=== PATIENT | female | born 1950 | race Caucasian/White ===

== ENCOUNTER 2016-12-27 10:23 | Outpatient (CLI) | payer MEDICARE, MEDICAID ==
--- NOTE | 2016-12-27 11:42 | PRG ---
DATE OF SERVICE: 12/27/2016 HISTORY: Ms. Selina Church is a very pleasant 66-year-old who presents to the [facility] for evaluation of a wound of the anterior abdominal wall subsequent to incision and drainage and debrid ement of an anterior abdominal wall abscess at bedside by Dr. Abimael Mejias. Upon discharge from [facility], the patient was referred to the Wound Center for further evaluatio n and treatment. Upon discharge, the patient was placed on Levaquin. The patient previously stated that she had completed the course of Levaquin as prescribed. After being seen in the Wound Center, the patient was placed on dressing changes of Aquacel AG and bordered gauze on a daily basis after cleansing and irrigation. PHYSICAL EXAMINATION: VITAL SIGNS: Temperature 98.2, pulse 99, respirations 18, blood pressure 167/91. ABDOMEN: Soft. EXTREMITIES: An ulceration of the anterior abdominal wall is present which measures approximately 1 .1 x 0.4 cm. The dimensions of the wound at the time of the patient's last visit were approximately 2.8 x 1.3 cm. Granulation tissue is present within the wound margins. Nonviable tissue present wi thin the wound margins was debrided with an excisional full-thickness debridement. No purulent drai nage is associated with the wound. No erythema of the skin surrounding the wound is present. No ma ceration of the skin of the periwound is noted. ASSESSMENT AND PLAN: 1. Wound of the anterior abdominal wall subsequent to incision and drainage and debridement of an a nterior abdominal wall abscess. The patient underwent the preceding procedure at bedside by Dr. Ansley Mejias during her hospital stay from 11/23/2016-11/27/2016. Dressing changes of Aquacel AG and bordered gauze will be continued on a daily basis after cleansing and irrigation. Arrangements wer e previously made for the home delivery of dressing supplies. I will see Ms. Church again in two we eks if her wound is still present at this time. 2. Atrial fibrillation. 3. Hypertension. 4. Osteoarthritis. 5. Anemia. 6. Osteopenia. 7. History of tension headaches. 8. History of sick sinus syndrome.
[2016-12-27] MEDS ORDERED: Sodium Chloride 0.9% 15 ML NEB ONE ×2 (20:00→21:00)
== END 2016-12-27 10:24 | disposition home or self-care (01) ==
LOC: WCC 10:23
PROVIDERS: ATTEND Family Medicine
DX: S31.109D Unspecified open wound of abdominal wall, unspecified quadrant without penetration into peritoneal cavity, subsequent encounter (principal); I48.91 Unspecified atrial fibrillation; I10 Essential (primary) hypertension; M19.90 Unspecified osteoarthritis, unspecified site; D64.9 Anemia, unspecified; M85.9 Disorder of bone density and structure, unspecified
CPT/HCPCS: 11042; A4218

== ENCOUNTER 2017-04-20 09:56 | Outpatient (CLI) | payer MEDICARE, MEDICAID ==
[2017-04-20 11:26] LABS: #Eosinphils 0.4 thou/uL (0.0-0.7); #Lymphocytes 1.7 thou/uL (1.20-3.40); #Monocytes 0.4 thou/uL (0.11-0.59); #Neutrophils 2.5 thou/uL (1.40-6.50); %Basophils 0.7 % (0.0-1.0); %Eosinophils 7.4 % (0.0-10.0); %Monocytes 7.8 % (0.0-10.0); %Neutrophils 50.1 % (42.0-75.0); Mean Corpuscular HGB CONC 31.7 g/dL (32.0-36.0); Mean Corpuscular Hemoglobin 27.9 pg (27.0-31.0); Mean Platelet Volume 7.5 fL (7.4-10.4); Platelet Count 205 thou/uL (130-400); RBC Distribution Width 12.4 % (11.5-14.5)
[2017-04-20 11:46] LABS: Anion Gap 14 mmol/L (10-20); BUN (Urea Nitrogen) 13 mg/dL (9.8-20.1); Calc. Creatinine Clearance 0 mL/min (70-130); Calcium 9.5 mg/dL (7.8-10.44); Carbon Dioxide 28 mmol/L (23-31); Chloride 102 mmol/L (98-107); Estimated GFR-MDRD 72; Glucose 86 mg/dL (80-115); Potassium 4.2 mmol/L (3.5-5.1); Sodium 140 mmol/L (136-145)
--- NOTE | 2017-04-21 07:17 | EKG ---
Test Reason : Blood Pressure : / mmHG Vent. Rate : 076 BPM Atrial Rate : 076 BPM P-R Int : 142 ms QRS Dur : 064 ms QT Int : 376 ms P-R-T Axes : 000 063 010 degrees QTc Int : 423 ms Electronic atrial pacemaker Low voltage QRS Cannot rule out Anterior infarct , age undetermined Abnormal ECG When compared with ECG of 06-OCT-2016 07:38, No significant change was found Confirmed by THAI BERRIOS, . SGregory ([id number]) on 04/21/2017 7:17:15 AM Referred By: VIKAS Confirmed By:DR. Chris ANDRE MD
== END 2017-04-20 09:57 | disposition home or self-care (01) ==
LOC: LABBT 09:56
PROVIDERS: ATTEND Surgery
DX: Z01.812 Encounter for preprocedural laboratory examination (principal); K44.9 Diaphragmatic hernia without obstruction or gangrene
CPT/HCPCS: 80048; 85025; 93005; 93010

== ENCOUNTER 2017-04-24 05:38 | Inpatient (IN) | payer MEDICARE, MEDICAID ==
[2017-04-20 10:30] VITALS: BMI 44.2
[2017-04-24] MEDS ORDERED: Bupivacaine 0.25% HCL 30 ML VIAL ONE (06:45)
[2017-04-24] MEDS ORDERED: Lidocaine 2% w/Epinephrine 1:200K 20 ML VIAL ONE (06:45)
[2017-04-24] MEDS ORDERED: Fentanyl 100 MCG/2 ML VIAL ONE ×2 (06:57→09:35)
[2017-04-24] MEDS ORDERED: HYDROmorphone 0.5 MG/0.5 ML SYRINGE ONE (06:57)
[2017-04-24] MEDS ORDERED: CEFAZOLIN/Water 2 GM/20 ML SYRINGE ONE (07:25)
[2017-04-24] MEDS ORDERED: Ondansetron HCl/PF 4 MG/2 ML Vial IVP PRN ×2 (09:29→11:30)
[2017-04-24] MEDS ORDERED: Promethazine HCl 25 MG/ML VIAL SLOW IVP PRN (09:29)
[2017-04-24] MEDS ORDERED: HYDROmorphone 2 MG/ML VIAL SLOW IVP PRN (09:29)
[2017-04-24] MEDS ORDERED: Promethazine HCl 25 MG/ML VIAL IM PRN ×2 (09:29→11:30)
[2017-04-24] MEDS ORDERED: Promethazine HCl 25 MG/ML VIAL ONE (09:35)
[2017-04-24] MEDS ORDERED: Mag-Al 1200 mg/1200 mg/30 ML UDCUP PO PRN (11:30)
[2017-04-24] MEDS ORDERED: hydrALAZINE 20 MG/ML VIAL SLOW IVP PRN (11:30)
[2017-04-24] MEDS ORDERED: Dextrose 5% in Water 1,000 ML IV PRN (11:30)
[2017-04-24] MEDS ORDERED: Acetaminophen 325 MG TAB PO PRN (11:30)
[2017-04-24] MEDS ORDERED: Hydrocodone-Acetamin 15 ML UDCUP PO PRN (11:30)
[2017-04-24] MEDS ORDERED: Dextrose 50% Abboject 50 ML SYRINGE SLOW IVP PRN (11:30)
[2017-04-24] MEDS ORDERED: Calcium Carbonate 500 MG ChewTAB PO PRN (11:30)
[2017-04-24] MEDS ORDERED: Morphine 2 MG/ML SYRINGE SLOW IVP PRN (11:58)
[2017-04-24] MEDS ORDERED: Morphine 5 MG/ML SYRINGE SLOW IVP PRN (12:01)
[2017-04-24] MEDS: D5 1/2 NS w/20 mEq KCL 1,000 ML IV SCH (12:14)
[2017-04-24] MEDS ORDERED: Ketorolac Tromethamine 30 MG/ML VIAL ONE (12:35)
[2017-04-24] MEDS ORDERED: Dexamethasone 20 MG/5 ML VIAL ONE (12:35)
[2017-04-24] MEDS ORDERED: Ondansetron HCl/PF 4 MG/2 ML Vial ONE (12:35)
[2017-04-24] MEDS ORDERED: Glycopyrrolate 0.2 MG/ML 5 ML SYRINGE ONE (12:35)
[2017-04-24] MEDS ORDERED: PROPOFOL 200 MG/20 ML VIAL ONE (12:35)
[2017-04-24] MEDS ORDERED: Lidocaine 1% PF 5 ML VIAL ONE (12:35)
[2017-04-24] MEDS ORDERED: Pantoprazole 40 MG VIAL IVP SCH (21:00)
[2017-04-24] MEDS ORDERED: Enoxaparin Sodium 40 MG/0.4 ML SYRINGE SC SCH (21:00)
[2017-04-25] MEDS: D5 1/2 NS w/20 mEq KCL 1,000 ML IV SCH ×2 (02:28→09:49)
[2017-04-25 05:52] LABS: #Lymphocytes 1.4 thou/uL (1.20-3.40); #Monocytes 0.5 thou/uL (0.11-0.59); %Basophils 0.2 % (0.0-1.0); %Eosinophils 0.2 % (0.0-10.0); %Lymphocytes 19.8 % (21.0-51.0); %Monocytes 6.6 % (0.0-10.0); %Neutrophils 73.2 % (42.0-75.0); Hemoglobin 13.9 g/dL (12.0-16.0); Mean Corpuscular HGB CONC 31.3 g/dL (32.0-36.0); Mean Corpuscular Hemoglobin 27.8 pg (27.0-31.0); Mean Corpuscular Volume 88.9 fl (81.0-99.0); Mean Platelet Volume 7.6 fL (7.4-10.4); Platelet Count 207 thou/uL (130-400); RBC Distribution Width 12.3 % (11.5-14.5); Red Blood Cell (RBC) Count 5.01 mill/uL (4.20-5.40); White Blood Cell (WBC) Count 6.8 thou/uL (4.8-10.8)
[2017-04-25] MEDS ORDERED: Metoprolol Tartrate 25 MG TAB PO SCH (09:00)
[2017-04-25] MEDS ORDERED: Venlafaxine HCl XR 75 MG CAP PO SCH (09:00)
--- NOTE | 2017-04-25 10:21 | RAD ---
BARIUM SWALLOW ESOPHAGRAM: HISTORY: Postop parietal hernia repair. COMPARISON: None. FINDINGS: The patient was given 15 mL of Gastrografin. There is no leak. There was normal appearance of the E G junction. IMPRESSION: No evidence of leak. No stricture. Contrast passes completely to the GE junction. No definite sindy ia is appreciated. POS: [facility]
--- NOTE | 2017-04-25 13:46 | DIS ---
DATE OF ADMISSION: 04/24/2017 DATE OF DISCHARGE: 04/25/2017 ADMIT DIAGNOSIS: Paraesophageal hiatal hernia. DISCHARGE DIAGNOSIS: Paraesophageal hiatal hernia. PROCEDURES: Laparoscopic hiatal hernia repair with Denise fundoplication and mesh reinforcement by Surya Flood without complication. CONDITION AT DISCHARGE: Improved. STAFF: Bennett Flood M.D. HOSPITAL COURSE: On postoperative day #1, the patient was tolerating her full liquids. Her swallow test shows appropriate anatomy without leak. Her pain is controlled. She is being discharged home. DISCHARGE MEDICINES: Include Lortab elixir, Zofran ODT and pantoprazole. She will resume her other medicines as before surgery including her anticoagulation. She will follow up with me in 2 weeks. S he understands that she is to be on a soft diet until followup.
[2017-04-25] MEDS ORDERED: GASTROGRAFIN 30 ML BOT ONE (13:51)
[2017-04-25 15:13] VITALS: BP 131/86; TEMP 98.3
--- NOTE | 2017-04-26 15:20 | OP ---
DATE OF PROCEDURE: 04/24/2017 PREOPERATIVE DIAGNOSIS: Paraesophageal hiatal hernia. POSTOPERATIVE DIAGNOSIS: Paraesophageal hiatal hernia. PROCEDURES PERFORMED: 1. Laparoscopic paraesophageal hiatal hernia repair with Denise fundoplication and mesh (Strattice a lloderm or Strattice allograft). 2. EGD. SURGEON: Dr. Flood. ANESTHESIA: General. ESTIMATED BLOOD LOSS: Minimal. COMPLICATIONS: None. FINDINGS: Large hiatal hernia. TECHNIQUE: The patient was taken to the operating room and placed supine on the table. After genera l anesthetic was obtained, arms and legs were double strapped to bariatric table. Her legs were spli t. Her abdomen was prepped and draped in a sterile fashion. Left subcostal 5-mm Optiview trocar was placed and high-flow pneumoperitoneum was obtained. A 5 mm camera port was placed one-third distanc e from the umbilicus to the xiphoid. Left and right abdominal 5 mm assist ports were placed. An ass ist port was placed just to the right of the patient's xiphoid and a 5 mm left subcostal port switche d out to a 10 mm port. Short gastrics were taken down from the upper third of the stomach. The left bakari and angle of His was completely dissected. The upper half of the stomach was up in the chest. Gastrohepatic ligament was opened and the caudate lobe was found. Caudate lobe was traced up to the right bakari of the diaphragm. The mediastinum is entered through the medial aspect of the right bakari . Circumferential dissection of the esophagus was performed. The vagus nerves were left intact. Th e GE junction and stomach was able to be brought back down into the abdominal cavity under no tension . A 46 bougie was brought in and its tip left in the antrum of the stomach. The snake liver retract or had been used to raise the liver off the GE junction. A 3 Ethibond sutures and the tie knot syste m were used to close the diaphragmatic hiatus posteriorly. No sutures were placed anteriorly. Given the lack of tissue strength, the decision was made to use Strattice. Perforated Strattice mesh was brought into the sterile field. It was cut, 4 x 4 cm, placed into the abdominal cavity, laid over th e posterior repair. One suture was placed in the middle to hold the mesh in place. Aerosolized Tiss eel was then used to glue the mesh to the diaphragmatic hernia repair. Next, the fundus of the stoma ch was able to be wrapped posterior to the GE junction. The wrapped fundus was able to be brought up anteriorly and sewn to the fundus that was still in the left upper quadrant forming a 360 degree wra p. This was not too tight. The wrap was not twisted. The upper suture was used to incorporate the GE junction to avoid slippage. Next, the bougie was removed and an EGD scope was passed via the esop hagus, stomach to the level of the duodenum without obstruction. The wrap was not too tight. There was no evidence of mucosal defect or injury. GE junction was confirmed to be back on the abdominal s melina of the diaphragm. EGD scope was used to decompress the stomach, was pulled and removed. All por t sites were infiltrated using local anesthetic. All ports were removed under camera visualization. Pneumoperitoneum was let down. A 4-0 Monocryl and Dermabond used to close all the skin incisions. Patient was en route to recovery in stable condition. All instrument counts, needle counts, and lap counts were correct.
== END 2017-04-25 15:50 | disposition home or self-care (01) | DRG 328 ==
LOC: SDC 05:38 → SURG A 09:21
PROVIDERS: ADMIT Surgery; ATTEND Surgery
PROC: 0BUT4JZ Supplement Diaphragm with Synthetic Substitute, Percutaneous Endoscopic Approach (ICD-10-PCS; principal; 2017-04-24)
PROC: 0DV44ZZ Restriction of Esophagogastric Junction, Percutaneous Endoscopic Approach (ICD-10-PCS; 2017-04-24)
PROC: 0DJ08ZZ Inspection of Upper Intestinal Tract, Via Natural or Artificial Opening Endoscopic (ICD-10-PCS; 2017-04-24)
DX: K44.9 Diaphragmatic hernia without obstruction or gangrene (principal); K21.9 Gastro-esophageal reflux disease without esophagitis; Z79.01 Long term (current) use of anticoagulants; Z95.0 Presence of cardiac pacemaker; Z96.641 Presence of right artificial hip joint; Z87.891 Personal history of nicotine dependence
CPT/HCPCS: 36415; 74220; 85025; C9113; J1100; J1170; J1650; J1885; J2001; J2405; J2550; J2704; J3010; Q4130; S0020

== ENCOUNTER 2017-10-07 09:13 | Emergency (ER) | payer MEDICARE, MEDICAID ==
[2017-10-07 10:01] LABS: Bilirubin Negative (Negative); Blood, Urine Trace (Negative); Clarity CLEAR (Clear); Glucose, Urine (Dipstick) Negative (Negative); Leukocyte Small (Negative); Nitrite Negative (Negative); Protein, Urine (Dipstick) Negative (Neg-Trace); Specific Gravity, Urine 1.024 (1.002-1.036)
[2017-10-07 10:04] LABS: Bacteria/HPF None Seen HPF (None Seen); Hyaline Casts/LPF 4-6 HYALINE CAST LPF (0-3 Hyaline); Pathc Cast-AUWi Flag 0.87 (0-2.49)
== END 2017-10-07 11:28 | disposition home or self-care (01) ==
LOC: ERS 09:13
DX: B37.3 Candidiasis of vulva and vagina (principal); L03.311 Cellulitis of abdominal wall; N39.0 Urinary tract infection, site not specified; R31.9 Hematuria, unspecified; I48.91 Unspecified atrial fibrillation; D64.9 Anemia, unspecified; I10 Essential (primary) hypertension; F17.290 Nicotine dependence, other tobacco product, uncomplicated; Z79.899 Other long term (current) drug therapy
CPT/HCPCS: 81003; 81015; 87077; 87086; 99283

== ENCOUNTER 2019-01-06 11:18 | Emergency (ER) | payer MEDICARE, MEDICAID ==
[2019-01-06 11:48] LABS: #Eosinphils 0.3 thou/uL (0.0-0.7); #Lymphocytes 0.8 thou/uL (1.20-3.40); #Monocytes 0.4 thou/uL (0.11-0.59); #Neutrophils 2.6 thou/uL (1.40-6.50); %Basophils 1.1 % (0.0-1.0); %Eosinophils 6.7 % (0.0-10.0); %Lymphocytes 19.4 % (21.0-51.0); %Monocytes 8.9 % (0.0-10.0); %Neutrophils 63.9 % (42.0-75.0); Hemoglobin 12.8 g/dL (12.0-16.0); Mean Corpuscular HGB CONC 32.9 g/dL (32.0-36.0); Mean Corpuscular Hemoglobin 28.2 pg (27.0-31.0); Mean Corpuscular Volume 85.6 fL (78.0-98.0); Mean Platelet Volume 7.6 fL (7.4-10.4); Platelet Count 191 thou/uL (130-400); RBC Distribution Width 13.8 % (11.5-14.5); Red Blood Cell (RBC) Count 4.54 mill/uL (4.20-5.40); White Blood Cell (WBC) Count 4.1 thou/uL (4.8-10.8)
--- NOTE | 2019-01-06 12:15 | CT ---
CT HEAD WITHOUT CONTRAST: Date: 01/06/19 INDICATION: Syncope. FINDINGS: Ventricles have normal size and position. There is no evidence of intracranial mass or hemorrhage. No evidence of infarct. Sinuses and mastoids are clear. Prominent ossification of the falx. IMPRESSION: No acute abnormality. POS: [facility]
[2019-01-06 12:18] LABS: ALT (SGPT) 8 U/L (8-55); AST (SGOT) 15 U/L (5-34); Alkaline Phosphatase 98 U/L (40-110); Anion Gap 11 mmol/L (10-20); BUN (Urea Nitrogen) 16 mg/dL (9.8-20.1); Bilirubin, Total 0.4 mg/dL (0.2-1.2); CK (CPK) 49 U/L (29-168); Calc. Creatinine Clearance 0 mL/min (70-130); Calcium 9.1 mg/dL (7.8-10.44); Carbon Dioxide 30 mmol/L (23-31); Chloride 102 mmol/L (98-107); Estimated GFR-MDRD 62; Glucose 115 mg/dL (80-115); Lipase 17 U/L (8-78); Sodium 139 mmol/L (136-145)
[2019-01-06 12:36] LABS: Bilirubin Negative (Negative); Blood, Urine Negative (Negative); Clarity Turbid (Clear); Glucose, Urine (Dipstick) Normal (Negative); Leukocyte 500 Leu/uL (Negative); Nitrite 2+ (Negative); Protein, Urine (Dipstick) 100 mg/dL (Neg-Trace); Renal Epithelial 0-3 HPF (None Seen); Transitional Epithelial 0-3 HPF (None Seen); WBC/HPF 21-50 HPF (0-3)
[2019-01-06 12:43] LABS: Bacteria/HPF 3+ HPF (None Seen)
[2019-01-06 12:44] LABS: Mucous/LPF 1+ LPF (<2+)
--- NOTE | 2019-01-06 13:29 | RAD ---
PORTABLE CHEST: Date: 01/06/19 HISTORY: Syncope. COMPARISON: 12/07/12. FINDINGS: Bibasilar infiltrates or atelectasis. Borderline cardiomegaly. Vascularity is upper normal but stable . Pacemaker leads again noted. IMPRESSION: Bibasilar atelectasis and/or infiltrates. POS: [facility]
--- NOTE | 2019-01-06 13:43 | CT ---
CT PULMONARY ANGIOGRAM WITH IV CONTRAST AND 3D POSTPROCESSING: Date: 01/06/19 HISTORY: Syncope. FINDINGS: There is good contrast opacification of the pulmonary arterial vasculature without filling defects to suggest pulmonary embolism. There are vascular calcifications without evidence of aneurysmal dilatat ion of the thoracic aorta. No pleural or pericardial effusions are seen. No pneumothoraces, focal are as of consolidation, or lung masses are identified. A hiatal hernia is present. There are degenerativ e changes of the spine. IMPRESSION: No CT evidence of pulmonary embolism. POS: [facility]
[2019-01-06] MEDS ORDERED: ISOVUE-370 76%-LOCM 1 ML ONE (13:45)
--- NOTE | 2019-01-07 17:22 | EKG ---
Test Reason : Blood Pressure : / mmHG Vent. Rate : 092 BPM Atrial Rate : 092 BPM P-R Int : 230 ms QRS Dur : 064 ms QT Int : 354 ms P-R-T Axes : 000 045 -21 degrees QTc Int : 437 ms Sinus rhythm with 1st degree A-V block Abnormal QRS-T angle, consider primary T wave abnormality Abnormal ECG Confirmed by ALEX BERRIOS, JEAN CARLOS ([id number]), food expeditor MOOSE CORTES ([id number]) on 01/07/2019 5:22:23 PM Referred By: Confirmed By:JEAN CARLOS JOHNSON MD
== END 2019-01-06 13:25 | disposition home or self-care (01) ==
LOC: ERS 11:18
DX: R55 Syncope and collapse (principal); N39.0 Urinary tract infection, site not specified; I48.91 Unspecified atrial fibrillation; D64.9 Anemia, unspecified; I10 Essential (primary) hypertension; E11.9 Type 2 diabetes mellitus without complications; F17.210 Nicotine dependence, cigarettes, uncomplicated; Z79.899 Other long term (current) drug therapy; Z79.84 Long term (current) use of oral hypoglycemic drugs; Z79.01 Long term (current) use of anticoagulants
CPT/HCPCS: 70450; 71045; 71275; 80053; 81003; 81015; 82550; 83690; 83880; 84146; 84484; 85025; 85379; 87077; 87086; 87186; 93005; 96360; Q9966

== ENCOUNTER 2023-02-21 09:02 | Day surgery (SDC) | payer MEDICARE ==
[2023-02-19 16:25] VITALS: BMI 31.5
[2023-02-19 16:31] LABS: Hematocrit 42.9 % (34.9-44.5); Hemoglobin 14.1 g/dL (12.0-15.5); Mean Corpuscular HGB CONC 32.9 g/dL (32.0-36.0); Mean Corpuscular Hemoglobin 30.3 pg (27.0-33.0); Mean Corpuscular Volume 92.3 fl (81.6-98.3); Mean Platelet Volume 10.1 fl (7.4-10.4); Platelet Count 209 10x3/uL (150-450); RBC Distribution Width 14.2 % (11.5-14.5); Red Blood Cell (RBC) Count 4.65 10x6/uL (3.90-5.03)
[2023-02-19 16:36] LABS: PTT 31.6 sec (22.0-33.0); Prothrombin Time 10.8 sec (9.5-12.1)
[2023-02-19 16:38] LABS: Anion Gap 16 mmol/L (10-20); BUN (Urea Nitrogen) 31 mg/dL (9.8-20.1); Calc. Creatinine Clearance 43 mL/min (70-130); Calcium 9.3 mg/dL (7.8-10.44); Carbon Dioxide 26 mmol/L (23-31); Chloride 102 mmol/L (98-107); Estimated GFR 37; Glucose 100 mg/dL (83-110); Potassium 4.5 mmol/L (3.5-5.1); Sodium 139 mmol/L (136-145)
[2023-02-21] MEDS ORDERED: Lidocaine 1% MPF 2 ML VIAL ONE (09:49)
[2023-02-21] MEDS ORDERED: Lidocaine 1% PF 5 ML VIAL ONE (10:55)
[2023-02-21] MEDS ORDERED: PROPOFOL 200 MG/20 ML VIAL ONE (10:55)
== END 2023-02-21 12:05 | disposition home or self-care (01) ==
LOC: SDC 09:02
PROVIDERS: ATTEND Internal Medicine Cardiovascular Disease
PROC: 5A2204Z Restoration of Cardiac Rhythm, Single (ICD-10-PCS; principal; 2023-02-21)
DX: I48.4 Atypical atrial flutter (principal); I48.19 Other persistent atrial fibrillation; I10 Essential (primary) hypertension; I49.5 Sick sinus syndrome; E66.01 Morbid (severe) obesity due to excess calories; Z68.31 Body mass index [BMI] 31.0-31.9, adult; Z86.79 Personal history of other diseases of the circulatory system; Z95.0 Presence of cardiac pacemaker; Z87.891 Personal history of nicotine dependence
CPT/HCPCS: 80048; 85027; 85610; 85730; 92960; J2704

== ENCOUNTER 2025-03-13 07:50 | Outpatient (CLI) | payer MEDICARE, MEDICAID ==
[2025-03-13 09:56] LABS: Hematocrit 35.9 % (36.0-47.0); Hemoglobin 11.1 g/dL (12.0-16.0); Mean Corpuscular Hemoglobin 30.4 pg (27.0-31.0); Mean Corpuscular Volume 98.4 fL (78.0-98.0); Platelet Count 98 10x3/uL (130-400); Red Blood Cell (RBC) Count 3.65 mill/uL (4.20-5.40); White Blood Cell (WBC) Count 1.16 10x3/uL (4.8-10.8)
[2025-03-13 09:58] LABS: ALT (SGPT) 17 U/L (Less than 34); AST (SGOT) 29 U/L (11-34); Albumin 3.9 g/dL (3.1-4.5); Alkaline Phosphatase 104 U/L (40-110); Anion Gap 12 mmol/L (10-20); BUN (Urea Nitrogen) 28 mg/dL (9.8-20.1); Bilirubin, Total 0.6 mg/dL (0.3-1.2); Calc. Creatinine Clearance 0 mL/min (70-130); Calcium 9.3 mg/dL (7.8-10.44); Carbon Dioxide 26 mmol/L (23-31); Chloride 106 mmol/L (98-107); Globulin 3.4 g/dL (2.4-3.5); Glucose 90 mg/dL (83-110); Potassium 5.3 mmol/L (3.5-5.1); Sodium 139 mmol/L (136-145)
[2025-03-13 10:04] LABS: INR-International Normal Ratio 1.1; PTT 34.4 sec (22.9-36.1); Prothrombin Time 13.8 sec (12.0-14.7)
== END 2025-03-13 07:51 | disposition home or self-care (01) ==
LOC: LABBT 07:50
PROVIDERS: ATTEND Internal Medicine Cardiovascular Disease
DX: Z01.818 Encounter for other preprocedural examination (principal); I48.19 Other persistent atrial fibrillation; I63.9 Cerebral infarction, unspecified
CPT/HCPCS: 80053; 85027; 85610; 85730; 86850; 86900; 86901; 93005; 93010